=== PATIENT | male | born 1950 | race Native Hawaiian/Other Pacific Islander ===

== ENCOUNTER 2017-10-11 08:02 | Outpatient (CLI) | payer OTHER | END 2017-10-11 19:19 | disposition home or self-care (01) | LOC: NM 08:02 | DX: R10.84 Generalized abdominal pain (principal) | CPT/HCPCS: A9537 ==

== ENCOUNTER 2018-05-01 10:22 | Outpatient (CLI) | payer OTHER ==
[2018-05-01 11:01] LABS: POTASSIUM 3.7 mmol/L (3.6-5.2)
== END 2018-05-01 19:28 | disposition home or self-care (01) ==
LOC: LABW 10:22
PROVIDERS: Internal Medicine Cardiovascular Disease
DX: Z79.899 Other long term (current) drug therapy (principal); I42.9 Cardiomyopathy, unspecified
CPT/HCPCS: 36415; 80053; 83880

== ENCOUNTER 2018-06-05 10:37 | Outpatient (CLI) | payer OTHER ==
[2018-06-05 10:57] LABS: POTASSIUM 3.7 mmol/L (3.6-5.2)
== END 2018-06-05 21:00 | disposition home or self-care (01) ==
LOC: LABW 10:37
PROVIDERS: Internal Medicine Cardiovascular Disease
DX: I42.9 Cardiomyopathy, unspecified (principal); Z79.899 Other long term (current) drug therapy
CPT/HCPCS: 36415; 80048; 83880

== ENCOUNTER 2018-07-17 10:30 | Outpatient (CLI) | payer OTHER ==
[2018-07-17 11:07] LABS: POTASSIUM 3.6 mmol/L (3.6-5.2)
== END 2018-07-17 20:31 | disposition home or self-care (01) ==
LOC: RAD 10:30
PROVIDERS: Internal Medicine Cardiovascular Disease
DX: I50.9 Heart failure, unspecified (principal); Z79.899 Other long term (current) drug therapy
CPT/HCPCS: 36415; 80048; 83880

== ENCOUNTER 2023-06-28 07:39 | Outpatient (CLI) | payer OTHER | END 2023-06-28 19:01 | disposition home or self-care (01) | LOC: US 07:39 | PROVIDERS: ATTEND Nurse Practitioner | DX: R14.0 Abdominal distension (gaseous) (principal) ==